=== PATIENT | female | born 1950 | race Caucasian/White ===

== ENCOUNTER → 2020-10-31 | Outpatient (CLI) | payer MEDICARE, BC ==
[2020-07-05 11:00] VITALS: BP 121/69
[~2020-10-31] MED LIST: ALPR0.5T6 PO; ASPI-886 PO; ATOR40TA PO; BIOT5000 PO; BUME1TAB3 PO; CALC0.25 PO; CALC600T60 PO; CARV3.1210 PO; CARV6.2511 PO; CHOL500050 PO; CLOP75TA PO; CYAN100031 PO; DULA1.5P SQ; FEXO180T81 PO; GABA300C18 PO; HYDR-2761 PO; HYDR-2868 PO; INSU100C SQ; INSU100I11 SQ; INSU100I13 SQ; IRON18TA PO; ISOS30TA68 PO; LEVO50TA5 PO; MULT-658 PO; OXCA300T3 PO; POTA20TA4 PO; PSYL0.5215 PO
--- NOTE | 2020-10-31 16:49 | CARD ---
MR#: [id number] Date of Study: 10/31/2020 Ordering Physician: KAYLA SU, Referring Physician: KAYLA SU, Tech: Deanne Perez, [facility] APPROVED REPORT EXAM: Two-dimensional and M-mode echocardiogram with Doppler and color Doppler. Other Information Quality : AverageHR: 60bpm INDICATION Cardiomyopathy RISK FACTORS Hypertension Hyperlipidemia Diabetes 2D DIMENSIONS Left Atrium(2D)3.2 (1.6-4.0cm)IVSd1.0 (0.7-1.1cm) Aortic Root(2D)3.1 (2.0-3.7cm)LVDd5.3 (3.9-5.9cm) LVOT Diameter2.1 (1.8-2.4cm)PWd0.9 (0.7-1.1cm) LVDs3.4 (2.5-4.0cm)FS (%) 35.4 % SV87.6 mlLVEF(%)64.4 (>50%) Aortic Valve AoV Peak Dickson.131.6cm/sAoV VTI28.3cm AO Peak GR.6.9mmHgLVOT Peak Dickson.120.3cm/s LVOT VTI 26.69cmAO Mean GR.3mmHg JASPER (VMAX)2.36pq0BCE (VTI)3.25cm2 Mitral Valve MV E Bsyikmgk22.4cm/sMV DECEL TRFM591ks MV A Flnkfjth53.2cm/sMV E Mean Gr.2mmHg MV KJA33rdW/A Ratio1.0 MVA (PHT)2.38cm2 TDI E/Lateral E'11.6E/Medial E'10.4 Pulmonary Valve PV Peak Ucevjzad054.8cm/sPV Peak Grad.5mmHg Tricuspid Valve TR P. Fiodqlai028ws/sRAP [id number] TR Peak Gr.86kiHmFMFA13ewVg Pulmonary Vein S1 Yqhdpsjy08.1cm/sD2 Mwzlnjjo99.8cm/s PVa [id number] LEFT VENTRICLE The left ventricle is normal size. There is normal left ventricular wall thickness. The left ventricu lar systolic function is normal. The Ejection Fraction is 55%. Septal motion consistent with conducti on abnormality. Transmitral Doppler flow pattern is Grade II-pseudonormal filling dynamics. RIGHT VENTRICLE The right ventricle is normal size. There is normal right ventricular wall thickness. The right ventr icular systolic function is normal. ATRIA The left atrium size is normal. The right atrium size is normal. The interatrial septum is intact wit h no evidence for an atrial septal defect or patent foramen ovale as noted on 2-D or Doppler imaging. AORTIC VALVE The aortic valve is normal in structure and function. Doppler and Color Flow revealed no significant aortic regurgitation. There is no significant aortic valvular stenosis. Calculated aortic valve area is 3.13 cm2 with maximum pressure gradient of 8 mmHg and mean pressure gradient of 4 mmHg. MITRAL VALVE The mitral valve is normal in structure and function. There is no evidence of mitral valve prolapse. There is no mitral valve stenosis. Doppler and Color-flow revealed trace mitral regurgitation. TRICUSPID VALVE The tricuspid valve is normal in structure and function. Doppler and Color Flow revealed trace tricus pid regurgitation There is no tricuspid valve stenosis. GREAT VESSELS The aortic root is normal in size. The IVC is normal in size and collapses >50% with inspiration. PERICARDIAL EFFUSION There is no evidence of significant pericardial effusion. Critical Notification Critical Value: No <Conclusion> The left ventricular systolic function is normal. The Ejection Fraction is 55%. Transmitral Doppler flow pattern is Grade II-pseudonormal filling dynamics. Trace mitral regurgitation. Trace tricuspid regurgitation. There is no evidence of significant pericardial effusion. Signed by : Kayla Su, Electronically Approved : 10/31/2020 16:48:33
== END ==
LOC: ECHO 09:50
PROVIDERS: ATTEND Internal Medicine Cardiovascular Disease
DX: I42.8 Other cardiomyopathies (principal)
CPT/HCPCS: 93306